=== PATIENT | male | born 1945 | race Caucasian/White ===

== ENCOUNTER 2017-09-14 09:24 | Emergency (ER) | payer MEDICARE | END 2017-09-14 10:44 | disposition home or self-care (01) | LOC: ERS 09:24 | DX: F41.1 Generalized anxiety disorder (principal) | CPT/HCPCS: 99283 ==

== ENCOUNTER 2017-09-15 15:30 | Emergency (ER) | payer MEDICARE | END 2017-09-15 17:50 | disposition home or self-care (01) | LOC: ERS 15:30 | DX: R53.1 Weakness (principal); R11.0 Nausea; T42.4X5A Adverse effect of benzodiazepines, initial encounter; Z79.899 Other long term (current) drug therapy | CPT/HCPCS: 93005 ==

== ENCOUNTER 2017-09-16 06:20 | Emergency (ER) | payer MEDICARE ==
[2017-09-16 07:29] LABS: PTT 32.7 SEC (22.9-36.1); Prothrombin Time 13.9 SEC (12.0-14.7)
[2017-09-16 07:43] LABS: Hematocrit 36.4 % (42.0-52.0); Mean Platelet Volume 5.6 fL (7.4-10.4); Red Blood Cell (RBC) Count 3.61 mill/uL (4.70-6.10); White Blood Cell (WBC) Count 7.1 thou/uL (4.8-10.8)
[2017-09-16 07:45] LABS: ALT (SGPT) 13 U/L (8-55); AST (SGOT) 22 U/L (5-34); Acetaminophen Less than 6.0 mcg/mL (10.0-30.0); Alkaline Phosphatase 66 U/L (40-150); Anion Gap 12 mmol/L (10-20); BUN (Urea Nitrogen) 18 mg/dL (8.4-25.7); Bilirubin, Total 0.8 mg/dL (0.2-1.2); CK (CPK) 100 U/L (30-200); Calc. Creatinine Clearance 0 mL/min (70-130); Calcium 8.4 mg/dL (7.8-10.44); Carbon Dioxide 23 mmol/L (23-31); Chloride 99 mmol/L (98-107); Estimated GFR-MDRD Greater than 90; Globulin 2.5 g/dL (2.4-3.5); Lipase 22 U/L (8-78); Salicylate Less than 8.0 mg/dL (15.0-30.0)
[2017-09-16 07:48] LABS: Troponin I Less than 0.010 ng/mL (< 0.028)
--- NOTE | 2017-09-16 07:48 | CT ---
BRAIN CT WITHOUT IV CONTRAST: Date: 09/16/17 HISTORY: 72-year-old male with altered mental status, anxiety, tremors, and not sleeping well. FINDINGS: Scattered chronic white matter ischemic change. No focal mass or midline shift. No intra or extra-ax ial hemorrhage. Sinuses and mastoids are clear of acute process. IMPRESSION: No acute intracranial process. No mass or bleed. POS: [facility]
[2017-09-16 07:59] LABS: Bilirubin Negative (Negative); Blood, Urine Negative (Negative); Glucose, Urine (Dipstick) Negative (Negative); Ketone, Urine Negative (Negative); Nitrite Negative (Negative); Protein, Urine (Dipstick) Negative (Neg-Trace); Urobilinogen 0.2 mg/dL (0.2-1.0)
[2017-09-16 08:02] LABS: Acanthocytes MODERATE= 6-15 cells (100X) (None Seen); Band 2 % (5-11); Metamyelocyte 1 % (0-0); Neutrophil 55 % (42-75)
--- NOTE | 2017-09-16 08:17 | RAD ---
CHEST ONE VIEW: History: 72-year-old male with altered mental status. FINDINGS: There is rotation to the left. Right sided old granulomatous disease. Heart size is within normal li mits. There are biapical pleural thickening changes much more marked on the left side. Underlying le ft apical neoplasm would be difficult to exclude although there is no overt rib destruction. No old studies. Surgical clips in the left upper quadrant. IMPRESSION: Biapical prominent pleural thickening, greater on the left side. Increased linear interstitial ivette ngs bilaterally, particularly on the upper lung zones, probably related to old scarring. Old granulo matous disease. Atherosclerosis of the aorta. No cardiomegaly, confluent pneumonia, or overt edema. Consider nonemergent follow up chest CT scan to evaluate the apices. POS: [facility]
[2017-09-16 08:29] LABS: Amphetamine Not Detected (NotDetected); Methadone Not Detected (NotDetected); Methamphetamine Not Detected (NotDetected)
--- NOTE | 2017-10-27 14:18 | EKG ---
Test Reason : Blood Pressure : / mmHG Vent. Rate : 072 BPM Atrial Rate : 312 BPM P-R Int : 000 ms QRS Dur : 074 ms QT Int : 406 ms P-R-T Axes : 000 048 047 degrees QTc Int : 444 ms Normal sinus rhythm Nonspecific ST abnormality Abnormal ECG Confirmed by MARANDA VAZQUEZ, RASHAD ([id number]), offline editor AUGUST LARKIN ([id number]) on 10/27/2017 2:17:51 PM Referred By: Confirmed By:RASHAD LOW MD
== END 2017-09-16 10:24 | disposition home or self-care (01) ==
LOC: ERS 06:20
DX: F41.1 Generalized anxiety disorder (principal)
CPT/HCPCS: 36415; 70450; 71010; 80053; 80306; 80307; 81003; 82140; 82550; 82553; 83690; 83880; 84443; 84484; 85025; 85610; 85730; 93005

== ENCOUNTER 2017-09-23 19:18 | Emergency (ER) | payer MEDICARE | END 2017-09-23 21:00 | disposition home or self-care (01) | LOC: ERS 19:18 | DX: F41.9 Anxiety disorder, unspecified (principal) | CPT/HCPCS: 99283 ==

== ENCOUNTER 2017-09-28 17:16 | Emergency (ER) | payer MEDICARE | END 2017-09-28 18:23 | disposition home or self-care (01) | LOC: ERS 17:16 | DX: Z76.0 Encounter for issue of repeat prescription (principal); F41.9 Anxiety disorder, unspecified | CPT/HCPCS: 99281 ==

== ENCOUNTER 2017-10-02 19:43 | Emergency (ER) | payer MEDICARE ==
[2017-10-02 21:43] LABS: Bilirubin Negative (Negative); Blood, Urine Negative (Negative); Glucose, Urine (Dipstick) Negative (Negative); Ketone, Urine Negative (Negative); Nitrite Negative (Negative); Protein, Urine (Dipstick) Negative (Neg-Trace); Urobilinogen 0.2 mg/dL (0.2-1.0)
[2017-10-02 21:53] LABS: Band 1 % (5-11); Hematocrit 36.4 % (42.0-52.0); Neutrophil 67 % (42-75); White Blood Cell (WBC) Count 11.9 thou/uL (4.8-10.8)
[2017-10-02 21:59] LABS: ALT (SGPT) 11 U/L (8-55); AST (SGOT) 18 U/L (5-34); Acetaminophen Less than 6.0 mcg/mL (10.0-30.0); Alkaline Phosphatase 75 U/L (40-150); Anion Gap 9 mmol/L (10-20); BUN (Urea Nitrogen) 20 mg/dL (8.4-25.7); Bilirubin, Total 0.3 mg/dL (0.2-1.2); Calc. Creatinine Clearance 0 mL/min (70-130); Calcium 8.7 mg/dL (7.8-10.44); Carbon Dioxide 26 mmol/L (23-31); Chloride 106 mmol/L (98-107); Estimated GFR-MDRD Greater than 90; Globulin 2.6 g/dL (2.4-3.5); Protein, Total 6.2 g/dL (5.8-8.1); Salicylate Less than 8.0 mg/dL (15.0-30.0)
[2017-10-02 22:13] LABS: Amphetamine Not Detected (NotDetected); Methadone Not Detected (NotDetected); Methamphetamine Not Detected (NotDetected)
[2017-10-03] MEDS ORDERED: traZODone HCl 50 MG TAB PO PRN (02:31)
== END 2017-10-03 05:54 ==
LOC: ERS 19:43
DX: F41.9 Anxiety disorder, unspecified (principal)
CPT/HCPCS: 36415; 80053; 80306; 80307; 81003; 82550; 84443; 85025; 99284